=== PATIENT | female | born 1950 | race Caucasian/White ===

== ENCOUNTER → 2017-12-07 | Emergency (ER) | payer MEDICARE, OTHER ==
[~2017-12-07] VITALS: Ht 162.6 cm; Wt 104.3 kg
[~2017-12-07] MED LIST: ATENOLOL25 MG PO; CEFTIN500 MG; DEXAMETHASONE SOD PHOS 10 MG/1 ML VIAL IV ONE; KETOROLAC TROMETHAMINE 30 MG/ML VIAL IV ONE; METHOCARBAMOL 750 MG TAB PO ONE; TRAMADOL HCL100 M1 PO; ZOCOR80 MG PO; atenolol; lipitor
[2017-12-07 15:38] LABS: BASOPHILS # (AUTO) 0.1 (0.0-0.1); BASOPHILS % 0.8 % (0.0-1.0); EOSINOPHILS # (AUTO) 0.3 (0.0-0.4); EOSINOPHILS % 3.3 % (0.0-6.0); HEMATOCRIT 41.7 % (34.2-44.1); HEMOGLOBIN 14.6 g/dL (12.0-16.0); LYMPHOCYTES # (AUTO) 2.9 (1.0-3.2); LYMPHOCYTES % 38.1 % (18.0-39.1); MEAN CORPUSCULAR HEMOGLOBIN 32.2 pg (28-32); MEAN CORPUSCULAR VOLUME 91.9 fL (81-99); MONOCYTES # (AUTO) 0.7 (0.2-0.8); MONOCYTES % 8.7 % (4.4-11.3); NEUTROPHILS # (AUTO) 3.8 (2.1-6.9); NEUTROPHILS % 48.8 % (38.7-80.0); PLATELET COUNT 219 x10e3/uL (140-360); RED BLOOD COUNT 4.54 x10e6/uL (3.6-5.1); RED CELL DISTRIBUTION WIDTH 12.7 % (11.7-14.4)
[2017-12-07 15:47] LABS: INR 0.97; PARTIAL THROMBOPLASTIN TIME 26.4 seconds (23.8-35.5); PROTHROMBIN TIME 13.4 seconds (11.9-14.5)
[2017-12-07 15:54] LABS: ALANINE AMINOTRANSFERASE 48 IU/L (0-55); ALBUMIN 3.8 g/dL (3.5-5.0); ALKALINE PHOSPHATASE 75 IU/L (40-150); ANION GAP 14.5 mmol/L (8-16); BLOOD UREA NITROGEN 11 mg/dL (7-26); BUN/CREATININE RATIO 16 (6-25); CALCIUM 9.6 mg/dL (8.4-10.2); CARBON DIOXIDE 25 mmol/L (22-29); CHLORIDE 104 mmol/L (98-107); CREATINE KINASE 192 IU/L (29-168); CREATININE, SERUM 0.68 mg/dL (0.57-1.11); EST GLOMERULAR FILTRATION RATE > 60 ML/MIN (60-); GLUCOSE 105 mg/dL (74-118); POTASSIUM 3.5 mmol/L (3.5-5.1); SODIUM 140 mmol/L (136-145)
--- NOTE | 2017-12-07 15:58 | Diagnostic Imaging Report ---
PROCEDURE: Frontal and lateral views of the chest. COMPARISON: None. INDICATIONS: SOB FINDINGS: Lines/tubes: None. Lungs: Low lung volumes with basilar subsegmental atelectasis. Pleura: There is no pleural effusion or pneumothorax. Heart and mediastinum: Mild cardiomegaly. Bones: Multilevel degenerative changes of the thoracic spine. IMPRESSION: Low lung volumes with basilar atelectasis. Mild cardiomegaly. No evidence of infection or pulmonary edema. Dictated by: Harsh Amaya M.D. on 12/07/2017 at 16:07 Electronically approved by: Harsh Amaya M.D. on 12/07/2017 at 16:07
[2017-12-07 16:00] LABS: TROPONIN I 0.007 ng/mL (0-0.300)
[2017-12-07 17:41] VITALS: BP 160/81
== END | disposition home or self-care (01) ==
LOC: ER 12:48
DX: M54.2 Cervicalgia (principal); M54.6 Pain in thoracic spine; M54.12 Radiculopathy, cervical region; M62.830 Muscle spasm of back; R07.89 Other chest pain
CPT/HCPCS: 36415; 71020; 80053; 82550; 82553; 84484; 85025; 85610; 85730; 87400; 93005; 99284; J1100; J1885

== ENCOUNTER 2019-07-19 11:05 | Inpatient (IN) | payer MEDICARE ==
[~2019-07-19] VITALS: Ht 162.6 cm; Wt 102.6 kg
[~2019-07-19 11:05] MED LIST changes: -DEXAMETHASONE SOD PHOS 10 MG/1 ML VIAL IV ONE; -KETOROLAC TROMETHAMINE 30 MG/ML VIAL IV ONE; -METHOCARBAMOL 750 MG TAB PO ONE
--- OUTSIDE RECORDS SUMMARY | 2019-07-19 11:09 | XMS REPORT ---
Author Author [facility] Address Unknown Phone Unavailable Care Team Providers Care Document Control Specialist Name Role Phone Alhaji MOSES Unavailable Unavailable Problems This patient has no known problems. Allergies, Adverse Reactions, Alerts This patient has no known allergies or adverse reactions. Medications This patient has no known medications. Results Test Description Test Time Test Comments Text Results Atomic Results Result Comments CHEST 2 VIEWS [place] [address] Patient Name: KYLIE SOTO MR #: [id number] : 1950 Age/Sex: 67/F Req #: [id number] Adm Physician: Ordered by: YU MOSES MD Report #: [id number] Location: ER Room/Bed: Procedure: [id number] DX/CHEST 2 VIEWS Exam Date: 12/07/17 Exam Time: 1453 REPORT STATUS: Signed PROCEDURE: Frontal and lateral views of the chest. COMPARISON: None. INDICATIONS: SOB FINDINGS: Lines/tubes: None. Lungs: Low lung volumes with basilar subsegmental atelectasis. Pleura: There is no pleural effusion or pneumothorax. Heart and mediastinum: Mild cardiomegaly. Bones: Multilevel degenerative changes of the thoracic spine. IMPRESSION: Low lung volumes with basilar atelectasis. Mild cardiomegaly. No evidence of infection or pulmonary edema. Dictated by: William Maza M.D. on 12/07/2017 at 16:07 Electronically approved by: William Maza M.D. on 12/07/2017 at 16:07 Dictated By: WILLIAM MAZA MD 1603 Transcribed By: UMESH on 12/07/17 1607 COPY TO: YU MOSES MD
--- OUTSIDE RECORDS SUMMARY | 2019-07-19 11:09 | XMS REPORT | Clinical Summary ---
Author Author [facility] Address Unknown Phone Unavailable Care Team Providers Care Health And Safety Consultant Name Role Phone Stephen Sutton DO PCP Allergies Comments Active Allergy Reactions Severity Noted Date Migraine Codeine Other (See 01/02/2018 Comments) Penicillin Hives 01/02/2018 Medications No known medications Active Problems Not on file Social History Date Tobacco Use Types Packs/Day Years Used Never Smoker Smokeless Tobacco: Never Used Drinks/Week oz/Week Comments Alcohol Use No Sex Assigned at Date Recorded Not on file Industry Job Start Date Occupation Not on file Not on file Not on file Travel End Travel History Travel Start No recent travel history available. Last Filed Vital Signs Not on file Plan of Treatment Health Maintenance Due Date Last Done Comments BREAST CANCER SCREENING 2002 COLONOSCOPY SCREENING 2002 SHINGLES VACCINES (#1) 2002 65+ PNEUMOCOCCAL VACCINE 2017 (1 of 2 - PCV13) INFLUENZA VACCINE 06/12/2019 Results Not on fileafter 07/18/2018 Insurance Type Payer Benefit Subscriber ID Effective Phone Address Plan / Dates Group HMO MISC MEDICARE REPLACEMENT MISC xxxxxxxxxxx 2017-P MEDICARE resent REPLACEMEN T Advance Directives For more information, please contact: [phone] Patient Private Secretary Explanation Type Date Recorded Advance Directives, 01/02/2018 5:47 PM Living Will and Medical Power of Suction 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
[2019-07-19] MEDS: CIPROFLOXACIN 400 MG/D5W 200ML 200 ML IV SCH ×3 (11:30→21:00)
[2019-07-19 12:22] LABS: BASOPHILS # (AUTO) 0.1 (0.0-0.1); BASOPHILS % 0.5 % (0.0-1.0); EOSINOPHILS # (AUTO) 0.1 (0.0-0.4); EOSINOPHILS % 0.9 % (0.0-6.0); HEMATOCRIT 43.1 % (34.2-44.1); HEMOGLOBIN 14.9 g/dL (12.0-16.0); LYMPHOCYTES # (AUTO) 3.8 (1.0-3.2); MEAN CORPUSCULAR HEMOGLOBIN 31.8 pg (28-32); MEAN CORPUSCULAR HGB CONC 34.6 g/dL (31-35); MEAN CORPUSCULAR VOLUME 92.1 fL (81-99); MONOCYTES % 8.7 % (4.4-11.3); NEUTROPHILS # (AUTO) 6.8 (2.1-6.9); NEUTROPHILS % 57.5 % (38.7-80.0); PLATELET COUNT 224 x10e3/uL (140-360); RED BLOOD COUNT 4.68 x10e6/uL (3.6-5.1); RED CELL DISTRIBUTION WIDTH 13.2 % (11.7-14.4)
[2019-07-19 12:25] LABS: BILIRUBIN,URINE NEGATIVE (NEGATIVE); CLARITY,URINE CLEAR (CLEAR); COLOR,URINE YELLOW (YELLOW); KETONES,URINE NEGATIVE (NEGATIVE); LEUKOCYTE ESTERASE ,URINE SMALL (NEGATIVE); NITRITE,URINE NEGATIVE (NEGATIVE); PROTEIN,URINE DIPSTICK TRACE (NEGATIVE); URINE UROBILINOGEN 0.2 mg/dL (0.2 - 1)
[2019-07-19 12:34] LABS: INR 1.01; PROTHROMBIN TIME 13.8 seconds (11.9-14.5)
[2019-07-19 12:35] LABS: PARTIAL THROMBOPLASTIN TIME 34.9 seconds (23.8-35.5)
[2019-07-19 12:37] LABS: BACTERIA,URINE FEW /HPF; EPITHELIAL CELLS,URINE FEW /LPF; RBC,URINE 0-5 /HPF (0-5); WBC,URINE (MAN) 0-5 /HPF (0-5)
--- NOTE | 2019-07-19 12:44 | NUR ---
PATIENT TO ROOM 3
[2019-07-19 12:45] LABS: ALANINE AMINOTRANSFERASE 14 IU/L (0-55); ALBUMIN 3.6 g/dL (3.5-5.0); ALBUMIN/GLOBULIN RATIO 0.9 (0.8-2.0); ALKALINE PHOSPHATASE 80 IU/L (40-150); ANION GAP 15.6 mmol/L (8-16); BLOOD UREA NITROGEN 12 mg/dL (7-26); BUN/CREATININE RATIO 14 (6-25); CALCIUM 9.7 mg/dL (8.4-10.2); CARBON DIOXIDE 21 mmol/L (22-29); CHLORIDE 107 mmol/L (98-107); CREATINE KINASE 42 IU/L (29-168); CREATININE, SERUM 0.84 mg/dL (0.57-1.11); EST GLOMERULAR FILTRATION RATE > 60 ML/MIN (60-); GLUCOSE 134 mg/dL (74-118); LIPASE 18 U/L (8-78); POTASSIUM 3.6 mmol/L (3.5-5.1); SODIUM 140 mmol/L (136-145)
[2019-07-19] MEDS ORDERED: DIATRIZOATE MEGL/DIATRIZOA SOD 30 ML BTL PO ONE (14:01)
[2019-07-19] MEDS ORDERED: SODIUM CHLORIDE 0.9% 50ML 50 ML ONE (15:13)
[2019-07-19] MEDS ORDERED: IOPAMIDOL 370 MG/ML 200 ML INFUS..BTL INJ ONE (15:13)
--- NOTE | 2019-07-19 17:14 | Diagnostic Imaging Report ---
EXAM: CT Abdomen and Pelvis WITH contrast INDICATION: Left lower quadrant pain, query diverticulitis. COMPARISON: None. TECHNIQUE: Abdomen and pelvis were scanned utilizing a multidetector helical scanner from the lung base to the pubic symphysis after administration of IV contrast. Coronal and sagittal reformations were obtained. Routine protocol was performed. Scan was performed when during portal venous phase. IV CONTRAST: 100 cc of Isovue 370. ORAL CONTRAST: Water COMPLICATIONS: None RADIATION DOSE: Total DLP: 846.4 mGy*cm Estimated effective dose: (DLP x 0.015 x size factor) mSv Dose modulation, iterative reconstruction, and/or weight based adjustment of the mA/kV was utilized to reduce the radiation dose to as low as reasonably achievable. FINDINGS: LINES and TUBES: None. LOWER THORAX: Scattered coronary atherosclerosis. Mitral annular calcifications. HEPATOBILIARY: Diffuse hepatic steatosis. No evidence of focal lesion. No biliary ductal dilation. GALLBLADDER: No radio-opaque stones or sludge. No wall thickening. SPLEEN: No splenomegaly. Splenic calcified granulomas. PANCREAS: No focal masses or ductal dilatation. ADRENALS: No adrenal nodules KIDNEYS/URETERS: No evidence of hydronephrosis or stone. There is a 6.0 cm hypodense cyst within the right lower pole kidney. GI TRACT: There is sigmoid colonic diverticulosis with focal area of wall thickening and surrounding inflammatory changes in the left lower quadrant on series 2, image 56. No evidence of bowel obstruction. Small hiatal hernia. PELVIC ORGANS/BLADDER: Status post hysterectomy. LYMPH NODES: No lymphadenopathy. VESSELS: There is infrarenal abdominal aortic aneurysm, measuring up to 3.0 cm. Moderate atherosclerotic calcifications of the abdominal aorta and branch vessels. PERITONEUM / RETROPERITONEUM: No free air or fluid. BONES AND SOFT TISSUES: No acute osseous abnormality. No suspicious lytic or blastic lesions. CONCLUSION: Acute sigmoid diverticulitis without evidence of gross perforation or drainable fluid collection. Diffuse hepatic steatosis. Infrarenal abdominal aortic aneurysm, measuring up to 3.0 cm. Suggest follow-up abdominal ultrasound or CT in 3 years. Signed by: Dr. Petty Raymond MD on 07/19/2019 5:11 PM
--- NOTE | 2019-07-19 17:16 | NUR ---
RADIOLOGY DELAY TAKING PT
[2019-07-19] MEDS ORDERED: DEXTROSE 50% SYRINGE 50 ML IV PRN (17:45)
--- OUTSIDE RECORDS SUMMARY | 2019-07-19 17:50 | XMS REPORT | Clinical Summary ---
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
[2019-07-19] MEDS: MORPHINE SULFATE 2 MG/ML SYR 1ML IV PRN ×2 (18:04→23:18)
[2019-07-19] MEDS: ONDANSETRON HCL INJ 2MG/ML 2ML 2 MG/ML VIAL IV PRN ×2 (18:04→23:18)
[2019-07-19] MEDS: METRONIDAZOLE 500MG/NS 100ML 100 ML IV SCH ×2 (18:06→23:40)
[2019-07-19] MEDS: SODIUM CHLORIDE 0.9% 1000ML 1,000 ML IV SCH (18:06)
[2019-07-19] MEDS: INSULIN LISPRO 100 UNIT/1 ML 3ML VIAL SQ SCH (18:07)
[2019-07-19 19:29] VITALS: BP 138/78
--- NOTE | 2019-07-19 19:30 | NUR ---
REPORT TAKEN FROM MORNING RN.ASSESSMENT DONE.LLQ ABD PAIN VOICED3/10.NO REP.DISTRESS.IV RUNNING TO RIGHT AC.AAOX4.BED LOCKED AND IN LOWEST POSITION.PHONE AND CALL LIGHT WITHIN REACH.INSTRUCTED TO CALL FOR ASSISTANCE NEEDED.
[2019-07-19 20:05] VITALS: BP 137/78
[2019-07-19 20:48] VITALS: BP 137/78
--- NOTE | 2019-07-19 23:52 | NUR ---
Medicated with morphine 4mg.voided.stable condition.
[2019-07-20] VITALS (7 sets, daily range): BP systolic 109–158; BP diastolic 60–72
[2019-07-20] MEDS ORDERED: SUMATRIPTAN SUC25 MG PO (01:56)
[2019-07-20] MEDS ORDERED: ZETIA10 MG PO (01:56)
[2019-07-20] MEDS ORDERED: METFORMIN HCL500 MG PO (01:56)
[2019-07-20] MEDS ORDERED: TOPIRAMATE25 MG PO (01:56)
[2019-07-20] MEDS ORDERED: LISINOPRIL2.5 MG PO (01:56)
[2019-07-20] MEDS: SODIUM CHLORIDE 0.9% 1000ML 1,000 ML IV SCH ×3 (04:27→23:56)
[2019-07-20] MEDS: ONDANSETRON HCL INJ 2MG/ML 2ML 2 MG/ML VIAL IV PRN ×2 (04:40→12:11)
[2019-07-20] MEDS: MORPHINE SULFATE 2 MG/ML SYR 1ML IV PRN ×2 (04:41→12:11)
[2019-07-20 05:09] LABS: BASOPHILS # (AUTO) 0.1 (0.0-0.1); BASOPHILS % 0.6 % (0.0-1.0); EOSINOPHILS # (AUTO) 0.2 (0.0-0.4); EOSINOPHILS % 2.3 % (0.0-6.0); HEMATOCRIT 38.4 % (34.2-44.1); HEMOGLOBIN 12.6 g/dL (12.0-16.0); LYMPHOCYTES # (AUTO) 3.7 (1.0-3.2); LYMPHOCYTES % 43.8 % (18.0-39.1); MEAN CORPUSCULAR HEMOGLOBIN 31.7 pg (28-32); MEAN CORPUSCULAR HGB CONC 32.8 g/dL (31-35); MEAN CORPUSCULAR VOLUME 96.5 fL (81-99); MONOCYTES # (AUTO) 0.8 (0.2-0.8); MONOCYTES % 8.9 % (4.4-11.3); NEUTROPHILS # (AUTO) 3.7 (2.1-6.9); NEUTROPHILS % 44.2 % (38.7-80.0); PLATELET COUNT 177 x10e3/uL (140-360); RED BLOOD COUNT 3.98 x10e6/uL (3.6-5.1); RED CELL DISTRIBUTION WIDTH 13.2 % (11.7-14.4)
[2019-07-20] MEDS: METRONIDAZOLE 500MG/NS 100ML 100 ML IV SCH ×4 (05:17→23:56)
[2019-07-20 05:44] LABS: ALANINE AMINOTRANSFERASE 13 IU/L (0-55); ALBUMIN 3.2 g/dL (3.5-5.0); ALBUMIN/GLOBULIN RATIO 0.9 (0.8-2.0); ALKALINE PHOSPHATASE 65 IU/L (40-150); ANION GAP 11.2 mmol/L (8-16); BLOOD UREA NITROGEN 11 mg/dL (7-26); BUN/CREATININE RATIO 13 (6-25); CARBON DIOXIDE 26 mmol/L (22-29); CHLORIDE 106 mmol/L (98-107); CREATININE, SERUM 0.84 mg/dL (0.57-1.11); EST GLOMERULAR FILTRATION RATE > 60 ML/MIN (60-); GLUCOSE 107 mg/dL (74-118); POTASSIUM 4.2 mmol/L (3.5-5.1); SODIUM 139 mmol/L (136-145)
--- NOTE | 2019-07-20 07:13 | NUR ---
BED SIDE REPORT GIVEN TO ONCOMING RN.STABLE CONDITION.
[2019-07-20] MEDS: INSULIN LISPRO 100 UNIT/1 ML 3ML VIAL SQ SCH ×4 (07:30→21:00)
--- NOTE | 2019-07-20 07:30 | NUR ---
Received patient this morning, a/ox3, had pain meds this morning and pains well controlled, IV fluids running, will monitor,call light within reach
[2019-07-20] MEDS ORDERED: ACETAMINOPHEN 325 MG TAB PO PRN (08:45)
[2019-07-20] MEDS: CIPROFLOXACIN 400 MG/D5W 200ML 200 ML IV SCH ×2 (11:30→21:05)
--- NOTE | 2019-07-20 15:49 | NUR ---
Consult to Dr. Magno Murray for acute diverticulitis and consult has been called by school community relations coordinator
--- NOTE | 2019-07-20 18:04 | NUR ---
Patient had GI soft diet and tolerated well, no c/o N/V, will monitor.
--- NOTE | 2019-07-20 19:35 | NUR ---
Received the patient from morning Rn.abd pain voiced 02/19.stable condition.
--- NOTE | 2019-07-20 19:58 | History and Physical ---
PRIMARY CARE PHYSICIAN: Domenico Douglas MD at [facility]. CHIEF COMPLAINT: Lower abdominal pain. HISTORY OF PRESENT ILLNESS: This is a 68-year-old female, who presented last night with complaints of lower abdominal pain. She denies any fever, chills, nausea, vomiting, diarrhea, chest pain, or back pain. She reports dysuria has been present for about a month, according to the patient she had gone to her PCP and the UA was negative for urinary tract infection. She also reports having a colonoscopy on November 2018, which she states had some polyps, but no further problems. PAST MEDICAL HISTORY: 1. Migraine headaches. 2. Borderline diabetes. 3. Arthritis. 4. Diverticulosis. PAST SURGICAL HISTORY: Bilateral knee replacements, partial hysterectomy, tonsillectomy, and bladder surgery when she was in the 3rd grade. FAMILY HISTORY: Mother had lymphoma and of pancreatic cancer in 2014. Father, she is unknown. SOCIAL HISTORY: She denies any tobacco, alcohol, or illicit drug use. She lives with her , [place]. REVIEW OF SYSTEMS: GENERAL: No fever or chills. HEENT: No head trauma or vision loss. LUNGS: No shortness of breath or cough. CARDIOVASCULAR: No chest pain. GI: Abdominal pain. NEUROLOGIC: Alert and awake. MUSCULOSKELETAL: No edema or pain with ambulation. SKIN: No rash. PHYSICAL ASSESSMENT: VITAL SIGNS: Temperature 98.6, pulse is 54, blood pressure is 109/60, respirations 16, and SpO2 is 96%. GENERAL: Alert, awake, with no acute distress. NECK: Supple. LUNGS: Clear to auscultation. CARDIOVASCULAR: Normal rate and rhythm. ABDOMEN: Soft and tender in the lower quadrants, more on the left than the right. EXTREMITIES: No edema. Active ROM. NEUROLOGIC: Alert, awake, and oriented x3. SKIN: Dry and intact. No gross abnormalities. LABORATORY DATA: Sodium is 139, potassium is 4.2, creatinine is 0.84, BUN is 11, glucose is 107. WBC upon arrival was 11.8, now 8.43, hemoglobin is 12.6, hematocrit is 38.4. INR is 1.01. UA shows trace protein, small leukocytes, and few bacteria. Urine culture shows Staphylococcus. Coag-negative, probably contamination, pending for final results. IMAGING: CT of the abdomen and pelvis showed acute sigmoid diverticulitis without evidence of gross perforation or drainable fluid collection. It also shows infrarenal abdominal aortic aneurysm, measuring up to 3 cm and suggest followup abdominal ultrasound or CT in 3 years. IMPRESSION: 1. Acute sigmoid diverticulitis. 2. Migraine headache. 3. Borderline diabetes. 4. Arthritis and fibromyalgia. 5. Pyuria. PLAN: We will continue with IV fluids and IV antibiotics, Cipro, and Flagyl for acute diverticulitis, we will consult GI for further evaluation and recommendations. We will advance clear liquid diet to bland diet. We will await on final urine culture. She still has [id number] discomfort in the lower quadrants of her abdomen. Further recommendations to follow. Dictated by VELASQUEZ Fuller Celeste Oconnor MD MY/MODL /[id number]
[2019-07-20] MEDS ORDERED: SUMATRIPTAN SUCCINATE 25 MG TAB PO PRN (21:30)
[2019-07-21] VITALS (9 sets, daily range): BP systolic 130–162; BP diastolic 62–81
--- NOTE | 2019-07-21 01:07 | NUR ---
DENIED PAIN MEDICINE.VOIDED.STABLE CONDITION.BED LOCKED AND IN LOWEST POSITION.PHONE AND CALL LIGHT WITHIN REACH.INSTRUCTED TO CALL FOR ASSISTANCE NEEDED.
[2019-07-21] MEDS: METRONIDAZOLE 500MG/NS 100ML 100 ML IV SCH ×2 (05:37→12:11)
--- NOTE | 2019-07-21 07:10 | NUR ---
BED SIDE SHIFT REPORT GIVEN TO THE ONCOMING RN.STABLE CONDITION.
[2019-07-21] MEDS: INSULIN LISPRO 100 UNIT/1 ML 3ML VIAL SQ SCH ×4 (07:30→20:57)
[2019-07-21] MEDS: LISINOPRIL 2.5 MG TAB PO SCH (08:28)
[2019-07-21] MEDS: CIPROFLOXACIN 400 MG/D5W 200ML 200 ML IV SCH (08:29)
[2019-07-21] MEDS: SODIUM CHLORIDE 0.9% 1000ML 1,000 ML IV SCH (09:32)
--- NOTE | 2019-07-21 12:07 | NUR ---
EDUCATED ABOUT IMM, SIGNED, FILED IN CHART, WITH COPY LEFT WITH FAMILY AT BEDSIDE.
[2019-07-21] MEDS: PHENAZOPYRIDINE HCL 100 MG TAB PO SCH ×2 (13:49→17:33)
--- NOTE | 2019-07-21 19:25 | NUR ---
Patient received lying in bed. AAO x 4. No complaints of pain. No signs of respiratory distress. Fall precautions implemented. Patient instructed to call for assistance when needed. Call light within reach,.
[2019-07-21] MEDS ORDERED: LEVOFLOXACIN 500 MG TAB PO SCH (21:00)
[2019-07-21] MEDS: METRONIDAZOLE 500 MG TAB PO SCH (22:00)
[2019-07-22] MEDS: LISINOPRIL 2.5 MG TAB PO SCH (00:51)
--- NOTE | 2019-07-22 01:03 | NUR ---
Dr. Magno Murray here to see patient. New order received to change diet from GI soft to Full liquid diet.
[2019-07-22 03:47] VITALS: BP 145/75
[2019-07-22] MEDS: METRONIDAZOLE 500 MG TAB PO SCH ×2 (06:15→13:13)
--- NOTE | 2019-07-22 07:00 | NUR ---
Patient resting comfortably. Shift report given to oncoming nurse.
[2019-07-22] MEDS: INSULIN LISPRO 100 UNIT/1 ML 3ML VIAL SQ SCH ×2 (07:30→11:30)
[2019-07-22 08:00] VITALS: BP 146/70
[2019-07-22 09:05] VITALS: BP 146/70
[2019-07-22] MEDS: PHENAZOPYRIDINE HCL 100 MG TAB PO SCH ×2 (09:05→13:00)
[2019-07-22 12:00] VITALS: BP 162/73
[2019-07-22] MEDS ORDERED: FLAGYL250 MG PO (13:04)
[2019-07-22] MEDS ORDERED: LEVAQUIN500 MG PO (13:04)
[2019-07-23] MEDS ORDERED: LISINOPRIL 2.5 MG TAB PO SCH (09:00)
--- NOTE | 2019-07-23 11:11 | Discharge Summary ---
PRIMARY CARE DOCTOR: Domenico Douglas MD. FINAL DIAGNOSIS: Acute diverticulitis. SECONDARY DIAGNOSIS: Obesity. CONSULTANTS: Dr. Murray, Gastroenterology. PROCEDURES/STUDIES PERFORMED: CT of the abdomen and pelvis. HISTORY: Per [facility]. HOSPITAL COURSE: The patient was admitted. The patient was started on IV Cipro and IV Flagyl. She responded well. Her WBC normalized. The patient currently is tolerating full liquid diet. The patient will continue to advance diet on her own at home. I have given her a prescription for Levaquin and Flagyl for 9 more days. The patient will follow up with her primary care doctor in a week. I have updated him as well. Of note, the patient has had a recent colonoscopy which just showed some polyps, but she will follow up with [facility] as well after discharge. The patient was seen and examined today. It took 32 minutes total to discharge this patient. CONDITION ON DISCHARGE: Improved. DISCHARGE MEDICATIONS: Please see medication reconciliation form. MD CEFERINO Saldaña/CELIA /[id number] cc: [facility]
== END 2019-07-22 13:25 | disposition home or self-care (01) | DRG 392 ==
LOC: ER 11:05 → ERHOLD 17:47 → MED/SURG2 18:37
PROVIDERS: ADMIT Internal Medicine; ATTEND Internal Medicine
DX: K57.32 Diverticulitis of large intestine without perforation or abscess without bleeding (principal); N39.0 Urinary tract infection, site not specified; G43.909 Migraine, unspecified, not intractable, without status migrainosus; R73.03 Prediabetes; M19.90 Unspecified osteoarthritis, unspecified site; E66.9 Obesity, unspecified; Z68.38 Body mass index [BMI] 38.0-38.9, adult; M79.7 Fibromyalgia
CPT/HCPCS: 36415; 74177; 80053; 81001; 82550; 82553; 82948; 83690; 84484; 85025; 85610; 85730; 87086; 99284; J2270; J2405; J7030; Q9967